=== PATIENT | male | born 1980 | race African-American/Black ===

== ENCOUNTER → 2024-10-13 | Outpatient (CLI) | payer OTHER ==
[2024-10-13 12:38] LABS: Creatinine,Urine Random 88.2 mg/dL
[2024-10-14 07:07] LABS: Basophils # (A) 0.02 X 10*3/uL (0.00-0.10); Basophils % (A) 0.4 %; Eosinophils # (A) 0.24 X 10*3/uL (0.04-0.35); Eosinophils % (A) 4.8 %; HCT 40.4 % (39.6-50.0); HGB 12.7 g/dL (13.0-17.0); Lymphocytes # (A) 1.68 X 10*3/uL (0.90-5.00); Lymphocytes % (A) 33.3 %; MCH 29.4 pg (27.0-32.0); MCHC 31.4 g/dL (32.0-37.0); MCV 93.5 FL (80.0-97.0); Mean Platelet Volume 9.5 FL (9.5-12.2); Monocytes # (A) 0.46 X 10*3/uL (0.20-1.00); Monocytes % (A) 9.1 %; NRBC Per 100 WBC 0 X 10*3/uL (0.00-0.01); Neutrophils # (A) 2.61 X 10*3/uL (1.80-7.70); Neutrophils % (A) 51.8 %; Platelet Count 332 X 10*3/uL (140-440); RBC 4.32 X 10*6/uL (4.40-5.60); RDW 12.9 % (11.5-14.5); WBC 5.04 X 10*3/uL (4.50-10.00)
[2024-10-14 09:16] LABS: % Iron Saturation 22.04 (15.00-50.00); ALT 16 U/L (10-49); AST 23 U/L (14-35); Albumin 4.3 g/dL (3.8-4.9); Albumin/Globulin Ratio 1.65 Ratio (1.60-3.17); Alkaline Phosphatase 62 U/L (41-126); BUN/Creat Ratio 14.89 Ratio (12.00-20.00); Blood Urea Nitrogen 13.4 mg/dL (9.0-27.0); Calcium 9.5 mg/dL (8.7-10.3); Carbon Dioxide 27.8 mmol/L (21.6-31.8); Chloride 106 mmol/L (96-109); Chol/HDL Ratio 3.81 Ratio; Creatine Kinase 272 U/L (35-257); Ferritin 74.2 ng/mL (22.0-322.0); GGT 36 U/L (0-73); Globulin 2.6 g/dL (1.6-3.3); Glucose 102 mg/dL (70-110); Iron 82 UG/DL (65-175); LDL Cholesterol,Calculated 99.5 mg/dL (0.0-131.0); Phosphorus 3.9 mg/dL (2.4-5.1); Potassium 5.2 mmol/L (3.5-5.5); Prostate Specific Antigen 1.36 ng/mL (0.000-2.500); Sodium 142 mmol/L (135-145); Total Bilirubin <0.2 mg/dL (0.3-1.2); Total Iron Binding Capacity 372 UG/DL (228-460); Total Protein 6.9 g/dL (6.2-8.2); Uric Acid 6.6 mg/dL (3.7-8.7)
[2024-10-14 10:03] LABS: Microalbumin Creatinine Ratio <13 mg/g Cr (0-30); Urine Alcohol Negative (Negative); Urine Barbiturate Negative (Negative); Urine Cocaine Negative (Negative); Urine Creatinine 93.4 mg/dL (39.0-259.0); Urine Methadone Negative (Negative); Urine Opiates Negative (Negative); Urine Phencyclidine Negative (Negative)
[2024-10-14 10:36] LABS: Erythrocyte Sedimentation Rate 7 mm/Hr (0-15)
[2024-10-14 11:11] LABS: Hepatitis A Antibody IgM Nonreactive (Nonreactive); Hepatitis B Core IgM Nonreactive (Nonreactive); Hepatitis B Surface Antigen Nonreactive (Nonreactive); Hepatitis C IgG Antibody Nonreactive (Nonreactive)
[2024-10-14 16:05] LABS: Appearance,Urine Clear (Clear); Bilirubin,Urine Negative (Negative); Blood,Urine Negative (Negative); Color,Urine Yellow (Yellow); Ketones,Urine Negative (Negative); Nitrite,Urine Negative (Negative); PH, Urine 7.5; Specific Gravity,Urine 1.018 (1.001-1.030)
[2024-10-16 07:11] LABS: Anabasine Urine <2.0 ng/mL (<2.0)
== END | disposition home or self-care (01) ==
LOC: LABWHC1 11:49
PROVIDERS: ATTEND Internal Medicine
DX: Z00.00 Encounter for general adult medical examination without abnormal findings (principal); I10 Essential (primary) hypertension; E87.8 Other disorders of electrolyte and fluid balance, not elsewhere classified; E78.5 Hyperlipidemia, unspecified; E03.9 Hypothyroidism, unspecified; D64.9 Anemia, unspecified; N40.0 Benign prostatic hyperplasia without lower urinary tract symptoms; J44.9 Chronic obstructive pulmonary disease, unspecified; M10.9 Gout, unspecified; K75.9 Inflammatory liver disease, unspecified; N39.0 Urinary tract infection, site not specified; R73.9 Hyperglycemia, unspecified
CPT/HCPCS: 84153; 82570 ×2; 80061; 80053; 80074; 85652; 84443; 84156; 82728; 82550; 82977; 83540; 83550; 83735; 84100; 84550; 85025; 86140; 82306; 80306; 82043; 83036; 36415; G0480; 80323; 81003